=== PATIENT | female | born 1955 | race African-American/Black ===

== ENCOUNTER 2018-04-30 19:50 | Inpatient (IN) | payer MEDICAID ==
[~2018-04-30] VITALS: Ht 172.7 cm; Wt 67.1 kg
[2018-04-30 19:50] VITALS: BP 138/62
[2018-04-30] MEDS ORDERED: Nitroglycerin 2% oint pkt TOPIC ONE (20:15)
[2018-04-30 21:20] VITALS: BP 119/49
[2018-04-30 22:12] LABS: ANION GAP 8 mmol/L (5-15); BLOOD UREA NITROGEN 32 mg/dL (7-18); CALCIUM 8.2 MG/DL (8.5-10.1); CARBON DIOXIDE 29 MMOL/L (21-32); CHLORIDE 104 MMOL/L (98-107); CREATININE 1.6 MG/DL (0.55-1.30); POTASSIUM 4.6 MMOL/L (3.5-5.1); SODIUM 141 MMOL/L (136-145)
[2018-04-30 22:15] LABS: INR 0.9 (0.9-1.1)
[2018-04-30 22:19] LABS: BASOPHILS % (AUTO) 1.9 % (0.0-2.0); EOSINOPHILS % (AUTO) 1.3 % (0.0-3.0); HEMOGLOBIN 9.8 G/DL (12.0-16.0); LYMPHOCYTES % (AUTO) 31.9 % (20.0-45.0); MEAN CORPUSCULAR VOLUME 88 FL (80-99); MONOCYTES % (AUTO) 8.7 % (1.0-10.0); NEUTROPHILS % (AUTO) 56.2 % (45.0-75.0); PLATELET COUNT 283 K/UL (150-450); RED BLOOD COUNT 3.51 M/UL (4.20-5.40); RED CELL DISTRIBUTION WIDTH 13.3 % (11.6-14.8); WHITE BLOOD COUNT 11.9 K/UL (4.8-10.8)
[2018-04-30 22:25] LABS: ALANINE AMINOTRANSFERASE 27 U/L (12-78); ALBUMIN 3.1 G/DL (3.4-5.0); ALBUMIN/GLOBULIN RATIO 0.9 (1.0-2.7); ALKALINE PHOSPHATASE 133 U/L (46-116); ASPARTATE AMINO TRANSFERASE 22 U/L (15-37); BILIRUBIN,TOTAL 0.2 MG/DL (0.2-1.0); CREATINE KINASE 70 U/L (26-308)
[2018-04-30] MEDS ORDERED: Metoprolol 5mg/5ml Inj IVP STA (22:28)
--- NOTE | 2018-04-30 22:38 | Emergency Room Report ---
History of Present Illness General Chief Complaint: Chest Pain Source: Patient, EMS Present Illness HPI The patient presents with chest pressure via EMS. She was just discharged yesterday after an evaluation for the same. She was told there was no damage to her heart. Today she started having chest pressure and tightness. This was 8/10, substernal. Paramedics gave her aspirin and nitroglycerin and this helped the pain reduced to 4/10. They did a prehospital EKG that showed no injury. Risk factors include HTN, DM, smoking. No fevers, chills, NVD, diaphoresis, weakness, dysuria, rashes. Allergies: Coded Allergies: No Known Allergies (Unverified , 04/30/18) Patient History Past Medical History: see triage record Social History: Reports: smoking Social History Narrative at home Now: No Reviewed Nursing Documentation: PMH: Agreed; PSxH: Agreed Nursing Documentation-PMH Past Medical History: No History, Except For Hx Hypertension: Yes Hx COPD: Yes Hx Diabetes: Yes Review of Systems All Other Systems: negative except mentioned in HPI Physical Exam Vital Signs Date Time Temp Pulse Resp B/P (MAP) Pulse Ox O2 Delivery O2 Flow Rate FiO2 04/30/18 19:45 97.9 100 16 120/34 100 Room Air 97.9 Sp02 EP Interpretation: reviewed, normal General Appearance: well appearing, no apparent distress, GCS 15 Head: normocephalic Eyes: bilateral eye normal inspection, bilateral eye PERRL ENT: moist mucus membranes Neck: supple Respiratory: lungs clear, normal breath sounds Cardiovascular #1: regular rate, rhythm Cardiovascular #2: 2+ radial (R) Gastrointestinal: normal inspection, normal bowel sounds, non tender, no mass, non-distended Musculoskeletal: back normal, normal range of motion, no calf tenderness Neurologic: alert, oriented x3, grossly normal - but sleepy Psychiatric: depressed affect Skin: normal inspection, warm/dry Medical Decision Making Diagnostic Impression: Primary Impression: Chest pain Qualified Codes: R07.9 - Chest pain, unspecified Additional Impressions: Elevated troponin Renal insufficiency Hyperglycemia ER Course The patient presents with chest pressure after recent cardiac evaluation. Differential includes unstable angina, angina, acute coronary syndrome, acute myocardial infarction, GERD, reflux, atypical chest pain amongst others. The fact that she had improvement in the field with aspirin and nitrates suggest that this may be cardiac in origin. Evaluation will be with EKG, chest x-ray and labs. She'll be treated with nitroglycerin paste. EKG was sinus tachycardia rate of 102 without acute injury. There is nonspecific ST-T wave changes. Chest x-ray basically normal. Lab called with positive troponin. The patient is given more aspirin here and also metoprolol. At this time her pain is rated as a 6/10 even though she had to be awakened from sleep to discuss her stay in the hospital. Consideration of metoprolol, however, BP slightly low. Patient admitted SDU, Dr. Hilton. Laboratory Tests Test 04/30/18 21:00 White Blood Count 11.9 K/UL (4.8-10.8) H Red Blood Count 3.51 M/UL (4.20-5.40) L Hemoglobin 9.8 G/DL (12.0-16.0) L Hematocrit 31.0 % (37.0-47.0) L Mean Corpuscular Volume 88 FL (80-99) Mean Corpuscular Hemoglobin 28.1 PG (27.0-31.0) Mean Corpuscular Hemoglobin Concent 31.8 G/DL (32.0-36.0) L Red Cell Distribution Width 13.3 % (11.6-14.8) Platelet Count 283 K/UL (150-450) Mean Platelet Volume 5.9 FL (6.5-10.1) L Neutrophils (%) (Auto) 56.2 % (45.0-75.0) Lymphocytes (%) (Auto) 31.9 % (20.0-45.0) Monocytes (%) (Auto) 8.7 % (1.0-10.0) Eosinophils (%) (Auto) 1.3 % (0.0-3.0) Basophils (%) (Auto) 1.9 % (0.0-2.0) Prothrombin Time 9.6 SEC (9.30-11.50) Prothrombin Time INR 0.9 (0.9-1.1) PTT 25 SEC (23-33) Sodium Level 141 MMOL/L (136-145) Potassium Level 4.6 MMOL/L (3.5-5.1) Chloride Level 104 MMOL/L (98-107) Carbon Dioxide Level 29 MMOL/L (21-32) Anion Gap 8 mmol/L (5-15) Blood Urea Nitrogen 32 mg/dL (7-18) H Creatinine 1.6 MG/DL (0.55-1.30) H Estimate Glomerular Filtration Rate 39.5 mL/min (>60) Glucose Level 311 MG/DL (74-106) H Calcium Level 8.2 MG/DL (8.5-10.1) L Total Bilirubin 0.2 MG/DL (0.2-1.0) Aspartate Amino Transferase (AST) 22 U/L (15-37) Alanine Aminotransferase (ALT) 27 U/L (12-78) Alkaline Phosphatase 133 U/L (46-116) H Total Creatine Kinase 70 U/L (26-308) Troponin I 0.167 ng/mL (0.000-0.056) Pro-B-Type Natriuretic Peptide 263 pg/mL (0-125) H Total Protein 6.7 G/DL (6.4-8.2) Albumin 3.1 G/DL (3.4-5.0) L Globulin 3.6 g/dL Albumin/Globulin Ratio 0.9 (1.0-2.7) L Lipase 367 U/L (73-393) EKG Diagnostic Results Rate: tachycardiac ST Segments: no acute changes ASA given to the pt in ED: Yes Rhythm Strip Diag. Results EP Interpretation: yes Rhythm: no PVC's, no ectopy, other - Sinus tachycardia Chest X-Ray Diagnostic Results Chest X-Ray Diagnostic Results : Chest X-Ray Ordered: Yes # of Views/Limited/Complete: 1 View Indication: Chest Pain EP Interpretation: Yes Interpretation: no consolidation, no effusion, no pneumothorax Impression: No acute disease Electronically Signed by: Electronically signed by Barry Sorto MD Last Vital Signs Date Time Temp Pulse Resp B/P (MAP) Pulse Ox O2 Delivery O2 Flow Rate FiO2 05/01/18 08:38 94 127/72 05/01/18 04:00 98.3 18 97 Room Air 98.3 Status: improved Disposition: ADMITTED INPATIENT Condition: Serious Referrals: NON PHYSICIAN (PCP) Barry Sorto M.D. Apr 30, 2018 22:38
[2018-04-30 22:49] VITALS: BP 108/54
[2018-05-01] VITALS (7 sets, daily range): BP systolic 104–149; BP diastolic 57–78
[2018-05-01] MEDS: Heparin 5000 units/ml inj SUBQ SCH ×2 (08:37→20:21)
[2018-05-01] MEDS: Aspirin Baby 81mg ORAL SCH (08:39)
[2018-05-01] MEDS ORDERED: Metoprolol Tartrate 12.5mg TAB ORAL SCH ×2 (09:00→18:30)
--- NOTE | 2018-05-01 10:44 | Diagnostic Imaging Report ---
Indication: Chest pain Technique: One view of the chest Comparison: none Findings: Bands of atelectasis are seen in the left mid lung periphery. Prominent reticular interstitial markings are seen in the right lung apex.. This appears to be associated with some underlying pleural thickening The heart size is normal. There are degenerative changes of the thoracic spine Impression: No definite acute process. Prominent reticular interstitial markings in the right lung apex are probably chronic Minimal peripheral left lung atelectasis or scarring
[2018-05-01 11:06] LABS: CHOLESTEROL 132 MG/DL (< 200); HDL CHOLESTEROL 35 MG/DL (40-60); TRIGLYCERIDES 100 MG/DL (30-150)
--- NOTE | 2018-05-01 13:31 | Cardiology Report ---
APPROVED REPORT EKG Measurement Heart [id number] MA 140P60 [id number] Sinus tachycardia Nonspecific T wave abnormality Abnormal ECG
--- NOTE | 2018-05-01 16:45 | History and Physical Report ---
DATE OF ADMISSION: 04/30/2018 CHIEF COMPLAINT: Chest pain. HISTORY OF PRESENT ILLNESS: The patient is a 69-year-old female. She has a history of sarcoidosis, hypertension, diabetes, and COPD. She presented with complaints of chest pain. According to the patient, she was well. About a week prior to admission, she developed intermittent episodes of chest pain. For last few days, it has been worse. The pain has not been exertional, has been mostly constant. She denies any fevers or chills. She has had no cough. On evaluation in the emergency room, her cardiac enzyme level was elevated at 0.167. EKG had no acute changes. Elevated troponin. She is now admitted for further evaluation and care. PAST MEDICAL HISTORY: As above. PAST SURGICAL HISTORY: Hysterectomy. CURRENT MEDICATIONS: Reconciled and reviewed. ALLERGIES: None. FAMILY HISTORY: None. SOCIAL HISTORY: Negative for alcohol or drugs. The patient is a smoker. REVIEW OF SYSTEMS: GENERAL: No fever or chills. HEENT: No headaches or visual changes. CARDIOPULMONARY: Positive chest pain. No shortness of breath. GASTROINTESTINAL: No nausea or vomiting. GENITOURINARY: No urgency or frequency. MUSCULOSKELETAL: No joint pain or swelling. NEUROLOGIC: No evidence of seizures. PHYSICAL EXAMINATION: GENERAL: The patient is well-developed, no apparent distress. VITAL SIGNS: Temperature 98.3 degrees, pulse 95, respirations 18, and blood pressure 137/69. HEART: Regular rate and rhythm. LUNGS: Clear. ABDOMEN: Soft, nontender and nondistended. EXTREMITIES: Without clubbing or cyanosis. LABORATORY AND DIAGNOSTIC DATA: Sodium 141, potassium 4.6, BUN 32, creatinine 1.6 and glucose 311. Troponin 0.167. ASSESSMENT: This is a pleasant female admitted with complaints of chest pain and a non-ST elevation myocardial infarction. 1. Acute myocardial infarction. 2. Diabetes. 3. Chronic obstructive pulmonary disease. 4. Hypertension. 5. History of sarcoidosis renal insufficiency. PLAN: Antiplatelet therapy, p.r.n. nitrates. Cardiology consultation. We will follow up with an echo. Continue outpatient diabetic regimen. Brandon Hilton M.D. DR: MIKE JOB#: [id number] CC:
--- NOTE | 2018-05-01 18:14 | Cardiology Report ---
APPROVED REPORT EXAM: Two-dimensional and M-mode echocardiogram with Doppler and color Doppler. INDICATION Chest Pain M-Mode DIMENSIONS IVSd1.1 (0.7-1.1cm)Left Atrium (MM)3.6 (1.6-4.0cm) LVDd4.2 (3.5-5.6cm)Aortic Root2.8 (2.0-3.7cm) PWd1.4 (0.7-1.1cm)Aortic Cusp Exc.1.8 (1.5-2.0cm) LVDs2.3 (2.5-4.0cm) PWs1.2 cm Normal left ventricular chamber size, systolic function and wall motion. Left ventricular ejection fraction estimated to be 55-60%. Moderate left ventricular hypertrophy. No evidence of pericardial or pleural effusion. Right cardiac chamber sizes are within normal limits. Mild left atrial enlargement by 2D. Focal aortic valve sclerosis with adequate cusp excursion. Thickened mitral valve leaflets with normal excursion. Mild mitral annulus and aortic root calcification. Pulmonic valve is well visualized. Normal tricuspid valve structure. IVC is normal in size and collapsible with respiration. A color flow and spectral Doppler study was performed and revealed: No aortic regurgitation. No mitral regurgitation. Mitral diastolic velocities suggest reduced left ventricular relaxation c/w diastolic dysfunction grade 1. No tricuspid regurgitation.
[2018-05-01] MEDS: Metoprolol 25mg tab ORAL SCH (18:45)
--- NOTE | 2018-05-01 20:00 | Consultation ---
DATE OF CONSULTATION: 05/01/2018 CARDIOLOGY CONSULTATION CONSULTING PHYSICIAN: Barry Johnston M.D. REQUESTING PHYSICIAN: Brandon Hilton M.D. REASON FOR CONSULTATION: Elevated troponin level. HISTORY OF PRESENT ILLNESS: This is a 63-year-old female with a history of hypertension, type 2 diabetes mellitus, and sarcoidosis who presented to the emergency room complaining of chest pressure. Her troponin levels have been elevated and I have been asked to assist with further care. At this time, the patient still complains of tightness in her chest that has been persisting for several days, but got worse over the past day. The pain is not associated with any specific activity. She has not had any fever, chills, cough, sputum production or wheezing. Her electrocardiogram reviewed on admission revealed sinus rhythm with nonspecific ST changes, most prominently in the lateral leads. She did have an echocardiogram today, which revealed normal wall motion and no significant valve disease. Her troponin levels have remained elevated ranging from 0.167 to 0.179. PAST MEDICAL HISTORY: 1. Hypertension. 2. Sarcoidosis. 3. Type 2 diabetes mellitus. 4. COPD. ALLERGIES: None. FAMILY HISTORY: Noncontributory. SOCIAL HISTORY: Active smoker, 50+ pack years. No alcohol or substance abuse. MEDICATIONS: Prior to admission, reviewed and reconciled. REVIEW OF SYSTEMS: She feels cold frequently. No fevers or chills. There is no history of thyroid disorder. Her diabetes is managed with oral therapy. There is no history of seizure or stroke. She has a history of sarcoidosis, it is unclear how extensive it is. She denies any history of blood clots in the legs. She has not had any recent hospitalizations for COPD. She denies any prior history of heart attack. No change in bowel habits noted and no frequency or dysuria. PHYSICAL EXAMINATION: VITAL SIGNS: Afebrile, blood pressure 120/74, pulse 116 in the emergency room and presently 132/72, pulse 84, respiratory rate 20, and temperature 99 degrees. HEENT: Conjunctivae pink. Sclerae are anicteric. Oropharynx clear. NECK: Supple. No jugular venous distention. No bruits. LUNGS: With coarse breath sounds. CARDIAC: Regular rhythm and rate. Normal S1 and S2 with a fourth heart sound. ABDOMEN: Soft and nontender. EXTREMITIES: No edema. LABORATORY AND DIAGNOSTIC DATA: Chest x-ray reveals increased interstitial markings in the right apex and some left lung atelectasis. BUN 32 and creatinine 1.6. Pro-natriuretic peptide 263. Potassium 4.6. Albumin 3.1. White count 11.9 and hemoglobin 9.8. IMPRESSION: 1. Acute myocardial infarction. 2. Sarcoidosis. 3. Type 2 diabetes mellitus. 4. Hypertension. 5. Mild protein-calorie malnutrition. 6. Anemia. PLAN: 1. Cardiac monitoring. 2. Antiplatelet therapy. 3. Stool occult blood. 4. Advanced beta-christine. Review lipid panel. 5. Maintain adequate hydration. 6. Check thyroid function. 7. Continue DVT prophylaxis. 8. We will consider further assessment of coronary flow reserve. Barry Johnston M.D. DR: WILBUR JOB#: [id number] CC:
[2018-05-01] MEDS: Levemir Flexpen SUBQ SCH (20:22)
[2018-05-01] MEDS: NovoLOG Insulin Flexpen SUBQ SCH (20:23)
[2018-05-02] VITALS: BP 138/69
[2018-05-02 04:00] VITALS: BP 127/69
[2018-05-02] MEDS: NovoLOG Insulin Flexpen SUBQ SCH ×4 (05:55→20:31)
[2018-05-02 06:03] LABS: BASOPHILS % (AUTO) 0.8 % (0.0-2.0); EOSINOPHILS % (AUTO) 1.9 % (0.0-3.0); HEMATOCRIT 29.7 % (37.0-47.0); HEMOGLOBIN 9.6 G/DL (12.0-16.0); LYMPHOCYTES % (AUTO) 44.2 % (20.0-45.0); MEAN CORPUSCULAR VOLUME 89 FL (80-99); MONOCYTES % (AUTO) 9.8 % (1.0-10.0); NEUTROPHILS % (AUTO) 43.3 % (45.0-75.0); PLATELET COUNT 286 K/UL (150-450); RED BLOOD COUNT 3.35 M/UL (4.20-5.40); RED CELL DISTRIBUTION WIDTH 13.3 % (11.6-14.8); WHITE BLOOD COUNT 10.1 K/UL (4.8-10.8)
[2018-05-02 06:33] LABS: ALANINE AMINOTRANSFERASE 21 U/L (12-78); ALBUMIN 2.7 G/DL (3.4-5.0); ALBUMIN/GLOBULIN RATIO 0.8 (1.0-2.7); ALKALINE PHOSPHATASE 105 U/L (46-116); ANION GAP 6 mmol/L (5-15); ASPARTATE AMINO TRANSFERASE 14 U/L (15-37); BILIRUBIN,TOTAL 0.2 MG/DL (0.2-1.0); BLOOD UREA NITROGEN 32 mg/dL (7-18); CALCIUM 8.7 MG/DL (8.5-10.1); CARBON DIOXIDE 28 MMOL/L (21-32); CHLORIDE 108 MMOL/L (98-107); CREATININE 1.2 MG/DL (0.55-1.30); POTASSIUM 4.6 MMOL/L (3.5-5.1); SODIUM 142 MMOL/L (136-145)
[2018-05-02 06:39] LABS: % IRON SATURATION 25 % (15-50); IRON 49 ug/dL (50-175); TOTAL IRON BINDING CAPACITY 200 ug/dL (250-450)
[2018-05-02 08:00] VITALS: BP 138/68
[2018-05-02] MEDS: Aspirin Baby 81mg ORAL SCH (08:49)
[2018-05-02] MEDS: Metoprolol 25mg tab ORAL SCH ×2 (08:49→20:27)
[2018-05-02] MEDS: Levemir Flexpen SUBQ SCH ×2 (08:52→20:29)
[2018-05-02] MEDS: Heparin 5000 units/ml inj SUBQ SCH ×2 (08:53→20:28)
--- NOTE | 2018-05-02 10:59 | General Progress Note ---
Assessment/Plan Problem List: (1) Chest pain ICD Codes: R07.9 - Chest pain, unspecified SNOMED: 04255804, 471444639, [id number] Qualifiers: Qualified Codes: R07.9 - Chest pain, unspecified (2) Elevated troponin ICD Codes: R74.8 - Abnormal levels of other serum enzymes SNOMED: 179211204, 886326853, 502579245 Status: stable Assessment/Plan antiplt rx b-blockade cards follow up Subjective ROS Limited/Unobtainable: No Constitutional: Reports: malaise, weakness HEENT: Reports: no symptoms Cardiovascular: Reports: no symptoms Respiratory: Reports: no symptoms Gastrointestinal/Abdominal: Reports: no symptoms Genitourinary: Reports: no symptoms Neurologic/Psychiatric: Reports: no symptoms Endocrine: Reports: no symptoms Hematologic/Lymphatic: Reports: no symptoms Allergies: Coded Allergies: No Known Allergies (Unverified , 04/30/18) All Systems: reviewed and negative except above Subjective no complaints. no cp/sob. trop trending down. cxr negative. nml echo Objective Last 24 Hour Vital Signs Date Time Temp Pulse Resp B/P (MAP) Pulse Ox O2 Delivery O2 Flow Rate FiO2 05/02/18 08:49 68 138/68 05/02/18 08:00 98.4 68 20 138/68 96 Room Air 98.4 05/02/18 07:33 69 05/02/18 04:00 98.3 71 20 127/69 95 Room Air 98.3 05/02/18 03:37 68 05/02/18 00:00 97.9 80 20 138/69 95 Room Air 97.9 05/01/18 23:45 72 05/01/18 20:00 97.7 82 18 149/78 95 Room Air 97.7 05/01/18 19:25 88 05/01/18 18:45 84 122/67 05/01/18 16:00 84 05/01/18 16:00 99.1 84 20 122/67 96 Room Air 99.1 05/01/18 12:00 84 05/01/18 12:00 99.0 85 20 132/72 94 Room Air 99.0 Intake and Output 05/01/18 05/02/18 19:00 07:00 Intake Total 300 ml 0 ml Output Total 150 ml Balance 300 ml -150 ml Intake Oral 300 ml 0 ml Output Urine Total 150 ml # Voids 2 1 Laboratory Tests 05/02/18 05:00: White Blood Count 10.1, Red Blood Count 3.35L, Hemoglobin 9.6L, Hematocrit 29.7L , Mean Corpuscular Volume 89, Mean Corpuscular Hemoglobin 28.8, Mean Corpuscular Hemoglobin Concent 32.5, Red Cell Distribution Width 13.3, Platelet Count 286, Mean Platelet Volume 6.4L, Neutrophils (%) (Auto) 43.3L, Lymphocytes (%) (Auto) 44.2, Monocytes (%) (Auto) 9.8, Eosinophils (%) (Auto) 1.9, Basophils (%) (Auto) 0.8, Sodium Level 142, Potassium Level 4.6, Chloride Level 108H, Carbon Dioxide Level 28, Anion Gap 6, Blood Urea Nitrogen 32H, Creatinine 1.2, Estimat Glomerular Filtration Rate 55.1, Glucose Level 115#H, Hemoglobin A1c 5.4, Calcium Level 8.7, Magnesium Level 2.2, Iron Level 49L, Total Iron Binding Capacity 200L, Percent Iron Saturation 25, Unsaturated Iron Binding 151 , Total Bilirubin 0.2, Aspartate Amino Transf (AST/SGOT) 14L, Alanine Aminotransferase (ALT/SGPT) 21, Alkaline Phosphatase 105, Troponin I 0.168H, Total Protein 6.3L, Albumin 2.7L, Globulin 3.6, Albumin/Globulin Ratio 0.8L, Thyroid Stimulating Hormone (TSH) 0.993 Height (Feet): 5 Height (Inches): 8.00 Weight (Pounds): 147 General Appearance: WD/WN, alert Neck: supple Cardiovascular: regular rhythm Respiratory/Chest: lungs clear, normal breath sounds, no respiratory distress Abdomen: normal bowel sounds, non tender, soft, no organomegaly Edema: no edema noted Arm (L), no edema noted Arm (R), no edema noted Leg (L), no edema noted Leg (R), no edema noted Pedal (L), no edema noted Pedal (R), no edema noted Generalized Brandon Hilton MD May 02, 2018 10:59
[2018-05-02 12:00] VITALS: BP 111/68
--- NOTE | 2018-05-02 14:03 | Cardiology Report ---
APPROVED REPORT EKG Measurement Heart [id number] LA 146P54 [id number] Normal sinus rhythm Normal ECG
--- NOTE | 2018-05-02 15:09 | Diagnostic Imaging Report ---
Indication: Shortness of breath Technique: One view of the chest Comparison: 04/30/2018 Findings: Chronic appearing reticular interstitial markings are seen in the right upper lobe, with some associated underlying pleural thickening. There is suggestion of increased parietal opacities in the bilateral perihilar regions. Some atelectasis is seen in the left lung periphery. The heart size is normal Impression: Questionable infiltrates or congestion developing in the bilateral perihilar regions, over 2 days. Correlate with clinical findings.
[2018-05-02 16:00] VITALS: BP 151/73
[2018-05-02 20:00] VITALS: BP 126/57
[2018-05-03] VITALS: BP 108/58
[2018-05-03 04:00] VITALS: BP 123/64
[2018-05-03] MEDS: NovoLOG Insulin Flexpen SUBQ SCH ×4 (06:11→21:59)
[2018-05-03 08:00] VITALS: BP 128/65
[2018-05-03] MEDS: Aspirin Baby 81mg ORAL SCH (08:53)
[2018-05-03] MEDS: Metoprolol 25mg tab ORAL SCH ×2 (08:53→21:53)
[2018-05-03] MEDS: Heparin 5000 units/ml inj SUBQ SCH ×2 (08:55→21:55)
[2018-05-03] MEDS: Levemir Flexpen SUBQ SCH ×2 (09:00→21:58)
--- NOTE | 2018-05-03 09:33 | General Progress Note ---
Assessment/Plan Problem List: (1) Chest pain ICD Codes: R07.9 - Chest pain, unspecified SNOMED: 90026529, 128998524, [id number] Qualifiers: Qualified Codes: R07.9 - Chest pain, unspecified (2) Elevated troponin ICD Codes: R74.8 - Abnormal levels of other serum enzymes SNOMED: 889265629, 328820155, 729523764 Status: stable Assessment/Plan antiplt rx b-blockade cards follow up ?stress test Subjective ROS Limited/Unobtainable: No Constitutional: Reports: malaise, weakness HEENT: Reports: no symptoms Cardiovascular: Reports: chest pain Respiratory: Reports: no symptoms Gastrointestinal/Abdominal: Reports: no symptoms Genitourinary: Reports: no symptoms Neurologic/Psychiatric: Reports: no symptoms Endocrine: Reports: no symptoms Hematologic/Lymphatic: Reports: anemia Allergies: Coded Allergies: No Known Allergies (Unverified , 04/30/18) All Systems: reviewed and negative except above Subjective no complaints. no cp/sob. trop trending down. cxr negative. nml echo ?CP Objective Last 24 Hour Vital Signs Date Time Temp Pulse Resp B/P (MAP) Pulse Ox O2 Delivery O2 Flow Rate FiO2 05/03/18 08:53 69 128/65 05/03/18 08:00 97.8 69 20 128/65 97 Room Air 97.8 05/03/18 04:00 98.2 68 18 123/64 97 Room Air 98.2 05/03/18 03:49 65 05/03/18 00:00 68 05/03/18 00:00 98.9 72 18 108/58 95 Room Air 98.9 05/02/18 20:27 71 126/57 05/02/18 20:00 98.6 79 18 126/57 96 98.6 05/02/18 19:57 86 05/02/18 16:00 98.7 79 20 151/73 95 Room Air 98.7 05/02/18 16:00 86 05/02/18 12:00 98.6 74 20 111/68 97 Room Air 98.6 05/02/18 12:00 72 Intake and Output 05/02/18 05/03/18 19:00 07:00 Intake Total 200 ml Output Total 1000 ml Balance 200 ml -1000 ml Intake Oral 200 ml Output Urine Total 1000 ml # Voids 2 Height (Feet): 5 Height (Inches): 8.00 Weight (Pounds): 148 Objective General Appearance: WD/WN, alert Neck: supple Cardiovascular: regular rhythm Respiratory/Chest: lungs clear, normal breath sounds, no respiratory distress Abdomen: normal bowel sounds, non tender, soft, no organomegaly Edema: no edema noted Arm (L), no edema noted Arm (R), no edema noted Leg (L), no edema noted Leg (R), no edema noted Pedal (L), no edema noted Pedal (R), no edema noted Generalized Brandon Hilton MD May 03, 2018 09:33
[2018-05-03 12:00] VITALS: BP 141/71
[2018-05-03 16:00] VITALS: BP 128/62
[2018-05-03 20:00] VITALS: BP 123/62
[2018-05-03] MEDS ORDERED: HYDROcodone/Acetamin 10/325 tab ORAL PRN (20:15)
--- NOTE | 2018-05-03 23:29 | Progress Note ---
DATE: 05/03/2018 CARDIOLOGY PROGRESS NOTE SUBJECTIVE: The patient has some congestion. No chest pain. No shortness of breath. OBJECTIVE: VITAL SIGNS: Blood pressure 141/71, pulse 77, and respirations 19. Monitored rhythm sinus. LUNGS: Few rhonchi. CARDIAC: Regular rhythm and rate. Normal S1, S2 with a fourth heart sound. ABDOMEN: Soft. EXTREMITIES: No edema. IMPRESSION: 1. Acute myocardial infarction. 2. Single-vessel coronary artery disease. 3. Hypertension. 4. Possible pneumonia. PLAN: 1. Add statin. 2. Continue anti-platelet therapy. 3. Beta-blockade. 4. Repeat chest x-ray. 5. No further diagnostic cardiac studies indicated at this time in view of available cardiac catheterization report. Barry Johnston M.D. DR: MARTIN JOB#: [id number] CC:
[2018-05-04] VITALS: BP 139/67
--- NOTE | 2018-05-04 01:30 | Progress Note ---
DATE: 05/02/2018 CARDIOLOGY PROGRESS NOTE Late entry for 05/02/2018. SUBJECTIVE: The patient has no chest pain or shortness of breath. Today, she is comfortable. Monitored rhythm, sinus. Troponin level is trending down. The patient's cardiac catheterization report from outside facility from earlier this year was reviewed. She had a small 60% stenosis of the diagonal branch only. Her echocardiogram now revealed normal ejection fraction. OBJECTIVE: VITAL SIGNS: Blood pressure 138/68, pulse 68, and respiratory rate 20. NECK: Supple. LUNGS: Clear. CARDIAC: Regular. Normal S1, S2 with a fourth heart sound. ABDOMEN: Soft. EXTREMITIES: No edema. LABORATORY AND DIAGNOSTIC DATA: Troponin is 0.168. Chest x-ray reveals possible infiltrate. IMPRESSION: 1. [id number]-[id number] myocardial infarction. 2. Minimal coronary artery disease. 3. Moderate protein-calorie malnutrition. 4. Hypertension. 5. Possible pneumonia. PLAN: 1. Medical management. 2. Antiplatelet therapy. 3. Statin drug. 4. Beta-christine. 5. Primary care physician to follow up regarding pulmonary infiltrate. Barry Johnston M.D. DR: MICHELLE JOB#: [id number] CC:
[2018-05-04 04:00] VITALS: BP 153/81
[2018-05-04] MEDS: NovoLOG Insulin Flexpen SUBQ SCH ×4 (06:16→21:35)
--- NOTE | 2018-05-04 07:47 | General Progress Note ---
Assessment/Plan Problem List: (1) Chest pain ICD Codes: R07.9 - Chest pain, unspecified SNOMED: 35865869, 173856573, 543544023 Qualifiers: Qualified Codes: R07.9 - Chest pain, unspecified (2) Elevated troponin ICD Codes: R74.8 - Abnormal levels of other serum enzymes SNOMED: 420075730, 328701597, 757303718 Status: stable, not improved Assessment/Plan antiplt rx b-blockade repeat trop check duplex CT chest iv abx for pna started Subjective ROS Limited/Unobtainable: No Constitutional: Reports: malaise, weakness HEENT: Reports: no symptoms Cardiovascular: Reports: chest pain Respiratory: Reports: cough Gastrointestinal/Abdominal: Reports: no symptoms Genitourinary: Reports: no symptoms Neurologic/Psychiatric: Reports: no symptoms Endocrine: Reports: no symptoms Hematologic/Lymphatic: Reports: no symptoms Allergies: Coded Allergies: No Known Allergies (Unverified , 04/30/18) All Systems: reviewed and negative except above Subjective had 1 hour of chest pain last night. ekg- no change. trop trending down. cxr- ?infiltrate Objective Last 24 Hour Vital Signs Date Time Temp Pulse Resp B/P (MAP) Pulse Ox O2 Delivery O2 Flow Rate FiO2 05/04/18 04:00 98.1 68 20 153/81 96 Room Air 98.1 05/04/18 04:00 69 05/04/18 00:00 99.9 67 20 139/67 94 Room Air 99.9 05/04/18 00:00 70 05/03/18 21:53 68 123/62 05/03/18 20:00 98.4 68 20 123/62 95 Room Air 98.4 05/03/18 20:00 68 05/03/18 16:00 97.2 69 22 128/62 99 97.2 05/03/18 16:00 68 05/03/18 12:00 67 05/03/18 12:00 97.7 77 19 141/71 97 Room Air 97.7 05/03/18 08:53 69 128/65 05/03/18 08:00 68 05/03/18 08:00 97.8 69 20 128/65 97 Room Air 97.8 Intake and Output 05/03/18 05/04/18 19:00 07:00 Intake Total 1260 ml Balance 1260 ml Intake Oral 1260 ml # Voids 3 1 Laboratory Tests 05/03/18 20:20: Troponin I 0.126H Height (Feet): 5 Height (Inches): 8.00 Weight (Pounds): 148 Objective General Appearance: WD/WN, alert Neck: supple Cardiovascular: regular rhythm Respiratory/Chest: lungs clear, normal breath sounds, no respiratory distress Abdomen: normal bowel sounds, non tender, soft, no organomegaly Edema: no edema noted Arm (L), no edema noted Arm (R), no edema noted Leg (L), no edema noted Leg (R), no edema noted Pedal (L), no edema noted Pedal (R), no edema noted Generalized Brandon Hilton MD May 04, 2018 07:47
[2018-05-04 08:00] VITALS: BP 154/77
[2018-05-04] MEDS: Aspirin Baby 81mg ORAL SCH (08:13)
[2018-05-04] MEDS: Metoprolol 25mg tab ORAL SCH ×2 (08:13→21:32)
[2018-05-04] MEDS: Levemir Flexpen SUBQ SCH ×2 (08:14→21:34)
[2018-05-04] MEDS: Heparin 5000 units/ml inj SUBQ SCH ×2 (08:14→21:36)
[2018-05-04] MEDS ORDERED: LORazepam Inj 2mg/ml 1ml IV ONE (09:03)
[2018-05-04] MEDS: cefTRIAXone 1 GM in D5W 110 ML IVPB SCH (10:28)
[2018-05-04 12:00] VITALS: BP 137/74
--- NOTE | 2018-05-04 14:39 | Diagnostic Imaging Report ---
Indication: Chest pain, abnormal chest sounds Technique: One view of the chest Comparison: 05/02/2018 Findings: Bilateral mostly upper lobe mostly interstitial disease persists, probably unchanged. No new infiltrates. The heart is border line enlarged. The pleural spaces are clear Impression: Unchanged bilateral mostly upper lobe mostly interstitial parenchymal disease. Please refer to CT report of the same day for more detailed analysis. No significant change control manager 2 days
--- NOTE | 2018-05-04 14:39 | Diagnostic Imaging Report ---
Clinical Indication: Cough, history of unspecified chest pain lasting for one hour Technique: Spiral acquisitions obtained through the chest. No IV contrast utilized, reason not stated. Multiplanar reconstructions generated. Total dose length product 520 mGycm. CTDIvol(s) 16 mGy. Dose reduction achieved using automated exposure control Comparison: none Findings: Confluent opacity seen within the right upper lobe. Extensive bronchiectasis within this area of confluent opacity indicates that this represents chronic scarring. In the superior segment of the right lower lobe, there is a confluent opacity which contains air bronchograms. The more cephalad aspect demonstrates some honeycombing and bronchiectasis. There is a small right pleural effusion. There is a 5 mm subpleural nodular opacity in the right lung apex. There is a small bulla or bleb in the medial right upper lobe. The left lower lobe demonstrates some ill-defined perihilar opacity, likely reflecting atelectasis or scarring, as well as linear atelectasis and/or scarring at the left lung base and in the inferior left upper lobe. There is significant left lobe volume loss noted. The heart is borderline enlarged. No pericardial effusion. The pulmonary arteries are ectatic, main pulmonary artery measuring 33 mm, left main measuring 29 mm, right main, measuring 25 mm. No mediastinal or hilar mass or adenopathy. Normal caliber aorta. The included portions of the thyroid are unremarkable. No axillary or chest wall mass or adenopathy. There is edema of the lower chest wall and upper abdominal wall. The esophagus is unremarkable. The bones demonstrate degenerative spondylosis changes. There is deformity and proliferative change of the lower medial right costovertebral junctions. This could indicate old trauma The included upper abdominal viscera demonstrate cholecystectomy clips. Impression: Right upper lobe confluent opacity is consistent with chronic scarring and bronchiectasis Superior segment right lower lobe confluent opacity also noted. Presence of honeycombing and bronchiectasis in the upper aspect of this suggests that this is chronic scarring, but the more inferior portion could also represent present an acute component. Correlate with clinical findings Evidence of chronic scarring and volume loss in the left lower lobe and to a lesser extent lingula Single right upper lobe bulla or bleb Subpleural 5 mm nodule in the right upper lobe, most likely postinflammatory given the other findings. Consider follow-up at 6-12 months if there is significant smoking history or other risk factors for lung carcinoma, however Ectatic pulmonary arteries, suggestive of but not diagnostic for pulmonary arterial hypertension Mild abdominal wall and lower chest wall edema Degenerative and possibly posttraumatic bony changes, as described Incidental finding of prior cholecystectomy The CT scanner at [facility] is accredited by the [employer] and the scans are performed using protocols designed to limit radiation exposure to as low as reasonably achievable to attain images of sufficient resolution adequate for diagnostic evaluation.
[2018-05-04 16:00] VITALS: BP 144/58
[2018-05-04 20:00] VITALS: BP 136/70
[2018-05-04] MEDS: Nitroglycerin Subl 0.4mg tab SL PRN (21:36)
[2018-05-05] VITALS: BP 114/60
[2018-05-05 04:00] VITALS: BP 142/74
[2018-05-05] MEDS: Nitroglycerin Subl 0.4mg tab SL PRN (04:24)
[2018-05-05] MEDS: NovoLOG Insulin Flexpen SUBQ SCH ×4 (06:29→20:49)
[2018-05-05 08:00] VITALS: BP 122/67
--- NOTE | 2018-05-05 09:05 | General Progress Note ---
Assessment/Plan Problem List: (1) Chest pain ICD Codes: R07.9 - Chest pain, unspecified SNOMED: 57624457, [id number], [id number] Qualifiers: Qualified Codes: R07.9 - Chest pain, unspecified (2) Elevated troponin ICD Codes: R74.8 - Abnormal levels of other serum enzymes SNOMED: 554436519, [id number], 747880024 Assessment/Plan antiplt rx b-blockade repeat trop iv abx for pna started dc planning on po abx if trop negative Subjective ROS Limited/Unobtainable: No Constitutional: Reports: malaise, weakness HEENT: Reports: no symptoms Cardiovascular: Reports: chest pain Respiratory: Reports: no symptoms Gastrointestinal/Abdominal: Reports: no symptoms Genitourinary: Reports: no symptoms Neurologic/Psychiatric: Reports: no symptoms Endocrine: Reports: no symptoms Hematologic/Lymphatic: Reports: no symptoms Allergies: Coded Allergies: No Known Allergies (Unverified , 04/30/18) All Systems: reviewed and negative except above Subjective chest pain again last night. ct with mostly scarring. possibly acute component. on iv abx Objective Last 24 Hour Vital Signs Date Time Temp Pulse Resp B/P (MAP) Pulse Ox O2 Delivery O2 Flow Rate FiO2 05/05/18 08:00 97.5 70 20 122/67 97 Room Air 97.5 05/05/18 04:24 142/74 05/05/18 04:00 97.3 69 20 142/74 96 Room Air 97.3 05/05/18 04:00 68 05/05/18 00:00 97.0 69 20 114/60 96 Room Air 97.0 05/05/18 00:00 69 05/04/18 21:36 136/70 05/04/18 21:32 71 136/70 05/04/18 20:00 97.0 71 18 136/70 96 Room Air 97.0 05/04/18 20:00 70 05/04/18 16:00 98.4 71 18 144/58 96 Room Air 98.4 05/04/18 16:00 69 05/04/18 12:00 67 05/04/18 12:00 97.9 68 18 137/74 96 Room Air 97.9 Intake and Output 05/04/18 05/05/18 19:00 07:00 Intake Total 940 ml Balance 940 ml Intake Oral 830 ml IV Total 110 ml # Voids 4 2 Height (Feet): 5 Height (Inches): 8.00 Weight (Pounds): 148 Objective General Appearance: WD/WN, alert Neck: supple Cardiovascular: regular rhythm Respiratory/Chest: lungs clear, normal breath sounds, no respiratory distress Abdomen: normal bowel sounds, non tender, soft, no organomegaly Edema: no edema noted Arm (L), no edema noted Arm (R), no edema noted Leg (L), no edema noted Leg (R), no edema noted Pedal (L), no edema noted Pedal (R), no edema noted Generalized Brandon Hilton MD May 05, 2018 09:05
[2018-05-05] MEDS ORDERED: ASPIRIN81 MG ORAL (09:11)
[2018-05-05] MEDS ORDERED: PRAVACHOL20 MG ORAL (09:11)
[2018-05-05] MEDS ORDERED: PROTONIX40 MG ORAL (09:11)
[2018-05-05] MEDS ORDERED: LOPRESSOR25 M1 ORAL (09:11)
[2018-05-05] MEDS: Metoprolol 25mg tab ORAL SCH ×2 (09:42→20:45)
[2018-05-05] MEDS: cefTRIAXone 1 GM in D5W 110 ML IVPB SCH (09:44)
[2018-05-05] MEDS: Aspirin Baby 81mg ORAL SCH (09:44)
[2018-05-05] MEDS: Heparin 5000 units/ml inj SUBQ SCH ×2 (09:47→20:50)
[2018-05-05] MEDS: Levemir Flexpen SUBQ SCH ×2 (09:54→20:47)
[2018-05-05 12:00] VITALS: BP 145/75
[2018-05-05 16:00] VITALS: BP 143/76
[2018-05-05 20:45] VITALS: BP 172/79
[2018-05-05] MEDS ORDERED: Tubing IV Secondary IV ONE (21:59)
[2018-05-05] MEDS ORDERED: NS 500ML ONE (21:59)
--- NOTE | 2018-05-06 12:20 | Cardiology Report ---
APPROVED REPORT EKG Measurement Heart [id number] Normal sinus rhythm Normal ECG
--- NOTE | 2018-05-08 13:11 | Discharge Summary ---
Discharge Summary Discharge Summary _ DATE OF ADMISSION: 04/30/2018 DATE OF DISCHARGE: 05/05/2018 REASON FOR ADMISSION: 63 years old female with past medical history significant for hypertension, sarcoidosis, COPD, diabetes mellitus ,presented to emergency department with complaint of chest pain. About a week prior to presentation to ED patient developed intermittent episodes of chest pain, which was getting progressively worse. Pain was not exertional, mostly constant. She denied fever and chills , she had no cough. Upon evaluation in emergency room troponin -0.167 , proBNP 263. BUN 32 , creatinine 1.6; mild leukocytosis WBC 11.9, hemoglobin 9.8, hematocrit 31, albumin 3.1 . Chest x-ray negative for acute cardiopulmonary pathology. EKG revealed no acute ischemic changes. Patient admitted with diagnosis of acute myocardial infarction, diabetes, COPD , hypertension, sarcoidosis, renal insufficiency , anemia CONSULTANTS: securities analyst [facility] COURSE: Patient admitted to telemetry floor. Cardiology consult was requested. Patient started on antiplatelet therapy , nitrate on as needed basis . Serial troponin were followed. Patient started on beta christine. Echocardiogram revealed ejection fraction 55-60% with moderate left ventricular hypertrophy. No evidence of pericardial or pleural effusion. Venous duplex bilateral lower extremities revealed no evidence of acute DVT. Lipid panel was within normal limits. Statin was continued. TSH was within normal limits GI and DVT prophylaxis provided. Security Shift Supervisor closely followed. Cardiac catheterization report from outside facility from earlier this year was personally reviewed by securities analyst. Patient had small 60% stenosis of the diagonal branch only , on according to securities analyst patient had minimal coronary artery disease with single-vessel . Security Shift Supervisor recommended medical management with antiplatelet therapy, beta christine and statin. Follow-up chest x-ray showed questionable pulmonary infiltrate. Patient had no leukocytosis , no fever. Patient subsequently undergone CT of the chest which revealed right upper lobe confluent opacity consistent with chronic scarring and bronchiectasis. Presence of tiny honeycombing and bronchiectasis in the upper aspect suggesting that this was a chronic scaring. Supplemental oxygen and pulmonary toilet provided as needed. Pulse oximetry was stable on room air. Blood sugar was closely monitored. Blood sugar was managed with long-acting Levemir and sliding scale of insulin as needed. Hemoglobin A1c 5.4 at goal. Renal parameters and electrolytes were closely monitored. Creatinine down to 1.2 prior to discharge. Nephrotoxins were avoided. Nutritional supplements implemented in plan of care. Hemoglobin and hematocrit were closely monitored and remained stable at the baseline. Patient was working with physical and occupational therapists. Placement was found at the senior living facility. Patient was stable for transfer to senior living facility for continuation of care FINAL DIAGNOSES: NSTEMI Minimal ( single vessel) CAD Diabetes mellitus COPD Hypertension History of sarcoidosis Renal insufficiency Anemia Protein calorie malnutrition DISCHARGE MEDICATIONS: See Medication Reconciliation list. DISCHARGE INSTRUCTIONS: Patient was discharged to senior living facility. Follow up with medical doctor at the facility. I have been assigned to dictate discharge summary for this account. I was not involved in the patient's management. Ernestina Crump NP May 08, 2018 13:11
== END 2018-05-05 22:00 | DRG 190 ==
LOC: EDBD 19:50 → EMR 21:06 → EDBEDREQ 22:30 → 2W 23:01 → EDBEDREQ 23:40 → 2E 05-02 17:58
DX: I21.9 Acute myocardial infarction, unspecified (principal); E44.0 Moderate protein-calorie malnutrition; E11.9 Type 2 diabetes mellitus without complications; D64.9 Anemia, unspecified; D86.9 Sarcoidosis, unspecified; I10 Essential (primary) hypertension; J44.9 Chronic obstructive pulmonary disease, unspecified; I25.10 Atherosclerotic heart disease of native coronary artery without angina pectoris; N28.9 Disorder of kidney and ureter, unspecified; F17.200 Nicotine dependence, unspecified, uncomplicated
CPT/HCPCS: 36415; 71045; 71250; 80053; 80061; 82550; 82962; 83036; 83540; 83550; 83690; 83735; 83880; 84443; 84484; 85025; 85610; 85730; 93005; 93306; 93970; 99285; J1815; S5561